=== PATIENT | female | born 1965 | race Caucasian/White ===

== ENCOUNTER 2019-01-09 05:50 | Day surgery (SDC) | payer BC ==
[2019-01-06 15:20] LABS: BILIRUBIN,URINE NEGATIVE (NEGATIVE); CLARITY/URINE CLEAR (CLEAR); COLOR,URINE YELLOW (YELLOW); GLUCOSE,URINE NEGATIVE (NEGATIVE); KETONES,URINE NEGATIVE (NEGATIVE); LEUKOCYTE ESTERASE ,URINE NEGATIVE (NEGATIVE); NITRITE, URINE NEGATIVE (NEGATIVE); PH,URINE 5.5 (5.0-8.0); PROTEIN URINE NEGATIVE (NEGATIVE); UROBILINOGEN,URINE 0.2 (0.2-1.0)
[2019-01-06 15:24] LABS: BLOOD, URINE TRACE (NEGATIVE)
[2019-01-06 15:26] LABS: BACTERIA,URINE FEW /HPF (None Seen); MUCUS,URINE None Seen /LPF (None Seen); RBC,URINE 0-3 /HPF (0-3); WBC,URINE 0-3 /HPF (0-3)
[2019-01-06 15:29] LABS: BASOPHILS % (AUTO) 0.4 % (0.0-2.0); EOSINOPHILS # (AUTO) 0.4 K/uL (0.0-0.4); HEMOGLOBIN 15.4 g/dL (12.0-16.0); LYMPHOCYTES # (AUTO) 1.9 K/uL (1.0-5.5); LYMPHOCYTES % (AUTO) 19.3 % (20.5-51.5); MEAN CORPUSCULAR HEMOGLOBIN 26 pg (27-31); MEAN CORPUSCULAR HGB CONC 33 % (32-36); MEAN CORPUSCULAR VOLUME 78 fL (79.0-98.0); MONOCYTES # (AUTO) 0.5 K/uL (0.0-1.0); MONOCYTES % (AUTO) 4.9 % (1.7-9.3); NEUTROPHILS % (AUTO) 71.4 % (40.0-70.0); PLATELET COUNT (AUTO) 273 K/uL (130-430); RED CELL DISTRIBUTION WIDTH 16.1 % (9.0-15.0); WHITE BLOOD COUNT (AUTO) 9.8 K/uL (4.8-10.8)
[2019-01-06 15:50] LABS: POTASSIUM 4.2 mmol/L (3.5-5.1)
[~2019-01-09] VITALS: Ht 160 cm; Wt 64.9 kg
[2019-01-09] MEDS ORDERED: CEFAZOLIN 1 GM IVPB PREMIX 50 ML IV ONE (07:09)
[2019-01-09] MEDS ORDERED: ROPIVACAINE HCL/PF 5 MG/ML 0.5% 30 ML VIAL INJ ONE (10:30)
[2019-01-09] MEDS ORDERED: LR 1,000 ML IV.SOLN IV ONE (10:30)
[2019-01-09] MEDS ORDERED: ONDANSETRON HCL 4 MG/2 ML VIAL IVP ONE (10:30)
[2019-01-09] MEDS ORDERED: SEVOFLURANE 15 MIN GAS INH ONE (10:30)
[2019-01-09] MEDS ORDERED: WATER FOR IRRIGATION,STERILE 1,000 ML IRRIG.SOLN IR ONE (10:30)
[2019-01-09] MEDS ORDERED: KETOROLAC TROMETHAMINE 30 MG VIAL IVP ONE (10:30)
[2019-01-09] MEDS ORDERED: fentaNYL CITRATE 250 MCG/5 ML AMP IV ONE (10:30)
[2019-01-09] MEDS ORDERED: NS IRRIG SOLN 1000 ML IR ONE (10:30)
[2019-01-09] MEDS ORDERED: PROPOFOL 200MG/ 20ML VIAL (DIPRIVAN) IV ONE (10:30)
[2019-01-09] MEDS ORDERED: DEXAMETHASONE SOD PHOSPHATE 4 MG/ML VIAL IVP ONE (10:30)
[2019-01-09] MEDS ORDERED: ROCURONIUM BROMIDE 10 MG/ML (ZEMURON) IV ONE (10:30)
[2019-01-09] MEDS ORDERED: MIDAZOLAM HCL 5 MG/5 ML VIAL IVP ONE (10:30)
[2019-01-09] MEDS ORDERED: fentaNYL CITRATE/PF 100 MCG/2 ML AMP IVP ONE (10:30)
[2019-01-09] MEDS ORDERED: LR 1,000 ML IV SCH (11:24)
[2019-01-09] MEDS ORDERED: MEPERIDINE HCL/PF 25 MG/ML DISP.SYRIN IVP PRN (11:30)
[2019-01-09] MEDS ORDERED: HYDROmorphone 2 MG/ML VIAL IVP PRN ×2 (11:30)
[2019-01-09] MEDS ORDERED: HYDROmorphone 1 MG INJ. 1 MG/ML AMPUL IVP PRN (11:30)
[2019-01-09] MEDS ORDERED: IBUPROFEN 800 MG TABLET PO PRN (12:45)
[2019-01-09] MEDS ORDERED: OXYCODONE/ACETAMINOPHEN 5-325 TABLET PO PRN ×2 (12:45)
[2019-01-09] MEDS ORDERED: ONDANSETRON HCL 4 MG/2 ML VIAL IM PRN (12:45)
[2019-01-09] MEDS ORDERED: HYDROmorphone 2 MG/ML VIAL ONE (14:04)
[2019-01-09 14:44] VITALS: BP_SYST 113
== END 2019-01-09 16:00 | disposition home or self-care (01) ==
LOC: SDS 05:50 → SMU 05:50 → SDS 16:00
PROVIDERS: ATTEND Obstetrics & Gynecology
DX: N80.2 Endometriosis of fallopian tube (principal); N94.6 Dysmenorrhea, unspecified; N80.0 Endometriosis of uterus; N92.0 Excessive and frequent menstruation with regular cycle; N93.0 Postcoital and contact bleeding; F17.200 Nicotine dependence, unspecified, uncomplicated; Z90.89 Acquired absence of other organs
CPT/HCPCS: 36415; 58571; 64488; 80048; 81000; 84703; 85025; 86886; 86900; 86901; 87086; 88307; C1727; J0690; J1100; J1170; J1885; J2250; J2405; J2704; J3010 ×2; J7120